=== PATIENT | female | born 1965 | race American Indian/Alaskan Native ===

== ENCOUNTER 2016-12-22 11:46 | Inpatient (IN) | payer BC ==
[2016-12-22 12:32] LABS: Hematocrit 40.3 % (30.3-42.9); Hemoglobin 13.2 gm/dl (10.1-14.3); Mean Corpuscular HGB Conc 33 % (30-34); Mean Corpuscular Hemoglobin 30 pg (28-32); Mean Corpuscular Volume 92 fl (79-97); Platelet Count 176 K/mm3 (140-440); Red Blood Count 4.38 M/mm3 (3.65-5.03); Red Cell Distribution Width 14.6 % (13.2-15.2); White Blood Count 3.6 K/mm3 (4.5-11.0)
[2016-12-22 12:49] LABS: Anion Gap 15 mmol/L; BUN/Creatinine Ratio 25; Blood Urea Nitrogen 15 mg/dL (7-17); Calcium 8.9 mg/dL (8.4-10.2); Carbon Dioxide 24 mmol/L (22-30); Chloride 104.6 mmol/L (98-107); Glucose 83 mg/dL (65-100); Potassium 3.8 mmol/L (3.6-5.0); Sodium 140 mmol/L (137-145)
[2016-12-22 13:07] LABS: Basophils % (Manual) 0 % (0.0-1.8); Blastocytes % (Manual) 0 %
[2016-12-22 13:08] LABS: Diff Status Complete; Macrocytosis 1+; Platelet Estimate Consistent w Auto
[2016-12-22] MEDS ORDERED: TYLENOL PO ONE (17:18)
[2016-12-22] MEDS ORDERED: BENTYL PO ONE (17:18)
[2016-12-22] MEDS ORDERED: CARAFATE PO ONE (17:18)
--- NOTE | 2016-12-22 17:18 | Emergency Department Report ---
ED Chest Pain HPI - General Chief Complaint: Chest Pain Stated Complaint: CHEST PAIN, RECTAL BLEEDING Time Seen by Provider: 12/22/16 16:47 Source: patient Mode of arrival: Ambulatory Limitations: No Limitations - History of Present Illness Initial Comments: This is a 51-year-old female. The patient is previously known to this provider. Patient reports that her primary care doctor is Dr. Blum. Patient reports that she had a colonoscopy in 2014 which demonstrated hemorrhoids. This was discussed with the lead burner apprentice on-call, Dr. Martinez , who verify this. The patient presents to the ER with multiple complaints. Her first complaint is chest pain. The chest pain is central. It does not radiate to the back, arms or neck. There is no vomiting or diaphoresis. There is no leg pain or leg swelling. There is no shortness of breath. No recent aspirin use, no recent cocaine use. No family history of heart disease, pulmonary embolus, DVT that she is aware of. Next complaint is rectal bleeding. This was a day ago during defecation. It was painless. It has since resolved. There is no hematemesis. Next complaint is lower abdominal pain. Abdominal pain is in the bilateral lower quadrants. It is intermittent over the past week. It does not radiate anywhere. No exacerbating or relieving factors. MD Complaint: chest pain -: Gradual Onset: during rest Pain Location: substernal Pain Radiation: none Severity: mild Severity scale (0 -10): 0 Quality: aching Consistency: intermittent Improves With: nothing Worsens With: nothing re: denies: nausea, vomting, diaphoresis, dyspnea, sense of impending doom Other Symptoms: denies: cough, fever, syncope, rash, acid taste in mouth, leg swelling, palpitations, burping Treatments Prior to Arrival: none Aspirin use within the Past 7 Days: (0) No - Related Data On Oral Contraceptives: No Home Medications Medication Instructions Recorded Confirmed Last Taken Naproxen/Esomeprazole Mag [Vimovo 1 each PO BID 12/22/16 12/22/16 12/20/16 Dr 500-20 mg Tablet] Allergies Allergy/AdvReac Type Severity Reaction Status Date / Time No Known Allergies Allergy Verified 08/13/15 07:37 Heart Score - HEART Score History: Slightly suspicious EKG: Non-specific Age: 45-65 Risk factors: No known risk factors Troponin: < normal limit HEART Score: 2 - Critical Actions Critical Actions: 0-3 pts:0.9-1.7%risk of adverse cardiac event.Candidate for discharge ED Review of Systems ROS: Stated complaint: CHEST PAIN, RECTAL BLEEDING Other details as noted in HPI Constitutional: denies: fever Eyes: denies: vision change ENT: denies: epistaxis Respiratory: denies: cough Cardiovascular: chest pain Gastrointestinal: abdominal pain, hematochezia Genitourinary: denies: urgency, dysuria Neurological: weakness. denies: as per HPI ED Past Medical Hx - Past Medical History Additional medical history: hital hernia - Surgical History Past Surgical History?: Yes Additional Surgical History: EGD, Colonoscopy - Social History Smoking Status: Current Some Day Smoker Substance Use Type: Alcohol - Medications Home Medications: Home Medications Medication Instructions Recorded Confirmed Last Taken Type Naproxen/Esomeprazole Mag [Vimovo 1 each PO BID 12/22/16 12/22/16 12/20/[address] 500-20 mg Tablet] ED Physical Exam - General Limitations: No Limitations General appearance: alert, in no apparent distress - Head Head exam: Present: atraumatic, normocephalic - Eye Eye exam: Present: normal appearance, EOMI. Absent: nystagmus - ENT ENT exam: Present: normal exam, normal orophraynx, mucous membranes moist, normal external ear exam - Neck Neck exam: Present: normal inspection, full ROM. Absent: tenderness, meningismus - Respiratory Respiratory exam: Present: normal lung sounds bilaterally. Absent: respiratory distress, wheezes, rales, rhonchi, stridor, chest wall tenderness - Cardiovascular Cardiovascular Exam: Present: regular rate, normal rhythm, normal heart sounds. Absent: bradycardia, tachycardia, irregular rhythm, systolic murmur, diastolic murmur, rubs, gallop - GI/Abdominal GI/Abdominal exam: Present: soft, normal bowel sounds. Absent: distended, tenderness, guarding, rebound, rigid, pulsatile mass - Rectal Rectal exam: Present: normal inspection, normal rectal tone, heme (-) stool, other (escorted by nurse Natalya Medel) - Extremities Exam Extremities exam: Present: normal inspection, full ROM, normal capillary refill. Absent: pedal edema, joint swelling, calf tenderness - Back Exam Back exam: Present: normal inspection, full ROM. Absent: tenderness, CVA tenderness (R), CVA tenderness (L), muscle spasm, paraspinal tenderness, vertebral tenderness - Neurological Exam Neurological exam: Present: alert, oriented X3, normal gait, other (Extraocular movements intact. Tongue midline. No facial droop. Facial sensation intact to light touch in the V1, V2, V3 distribution bilaterally. 5 and 5 strength in 4 extremities.. Sensation is intact to light touch in 4 extremities.). Absent : motor sensory deficit - Psychiatric Psychiatric exam: Present: normal affect, normal mood - Skin Skin exam: Present: warm, dry, intact, normal color. Absent: rash ED Course Vital Signs 12/22/16 12/22/16 12/22/16 12:00 14:43 16:40 Temperature 98.1 F 97.8 F Pulse Rate 88 78 Respiratory 16 18 18 Rate Blood Pressure 130/86 Blood Pressure 132/78 [Right] O2 Sat by Pulse 99 99 Oximetry - Reevaluation(s) Reevaluation #1: 12/22/16 19:[address] Reyes to discuss with turnstile collector, Dr Trevizo, to admit 12/22/16 20:17 ARSLAN score - Arslan Score Age > 65: (0) No Aspirin use within the Past 7 Days: (0) No 3 or more CAD Risk Factors: (0) No 2 or more Angina events in past 24 hrs: (0) No Known CAD with more than 50% Stenosis: (0) No Elevated Cardiac Markers: (0) No ST Deviation Greater than 0.5mm: (0) No ARSLAN Score: 0 ED Medical Decision Making - Lab Data Result diagrams: 12/22/16 12:06 12/22/16 12:06 Vital Signs 12/22/16 12/22/16 12/22/16 12:00 14:43 16:40 Temperature 98.1 F 97.8 F Pulse Rate 88 78 Respiratory 16 18 18 Rate Blood Pressure 130/86 Blood Pressure 132/78 [Right] O2 Sat by Pulse 99 99 Oximetry Lab Results 12/22/16 12/22/16 12/22/16 Range/Units 12:06 12:06 12:06 WBC 3.6 L (4.5-11.0) K/mm3 RBC 4.38 (3.65-5.03) M/mm3 Hgb 13.2 (10.1-14.3) gm/dl Hct 40.3 (30.3-42.9) % MCV 92 (79-97) fl MCH 30 (28-32) pg MCHC 33 (30-34) % RDW 14.6 (13.2-15.2) % Plt Count 176 (140-440) K/mm3 Lymph % (Auto) Pallet Repairer Add Manual Diff Complete Total Counted 100 Seg Neutrophils % Pallet Repairer Seg Neuts % (Manual) 23.0 L (40.0-70.0) % Band Neutrophils % 0 % Lymphocytes % (Manual) 69.0 H (13.4-35.0) % Reactive Lymphs % (Man) 0 % Monocytes % (Manual) 3.0 (0.0-7.3) % Eosinophils % (Manual) 5.0 H (0.0-4.3) % Basophils % (Manual) 0 (0.0-1.8) % Metamyelocytes % 0 % Myelocytes % 0 % Promyelocytes % 0 % Blast Cells % 0 % Nucleated RBC % Not Reportable Seg Neutrophils # Man 0.8 L (1.8-7.7) K/mm3 Band Neutrophils # 0.0 K/mm3 Lymphocytes # (Manual) 2.5 (1.2-5.4) K/mm3 Abs React Lymphs (Man) 0.0 K/mm3 Monocytes # (Manual) 0.1 (0.0-0.8) K/mm3 Eosinophils # (Manual) 0.2 (0.0-0.4) K/mm3 Basophils # (Manual) 0.0 (0.0-0.1) K/mm3 Metamyelocytes # 0.0 K/mm3 Myelocytes # 0.0 K/mm3 Promyelocytes # 0.0 K/mm3 Blast Cells # 0.0 K/mm3 WBC Morphology Not Reportable Hypersegmented Neuts Not Reportable Hyposegmented Neuts Not Reportable Hypogranular Neuts Not Reportable Smudge Cells Not Reportable Toxic Granulation Not Reportable Toxic Vacuolation Not Reportable Dohle Bodies Not Reportable Pelger-Huet Anomaly Not Reportable Ananda Rods Not Reportable Platelet Estimate Consistent w auto Clumped Platelets Not Reportable Plt Clumps, EDTA Not Reportable Large Platelets Not Reportable Giant Platelets Not Reportable Platelet Satelliting Not Reportable Plt Morphology Comment Not Reportable RBC Morphology Not Reportable Dimorphic RBCs Not Reportable Polychromasia Not Reportable Hypochromasia Not Reportable Poikilocytosis Not Reportable Anisocytosis Not Reportable Microcytosis Not Reportable Macrocytosis 1+ Spherocytes Not Reportable Pappenheimer Bodies Not Reportable Sickle Cells Not Reportable Target Cells Not Reportable Tear Drop Cells Not Reportable Ovalocytes Not Reportable Helmet Cells Not Reportable [place] Bodies Not Reportable [place] Rings Not Reportable [place] Cells Not Reportable Bite Cells Not Reportable Crenated Cell Not Reportable Elliptocytes Not Reportable Acanthocytes (Spur) Not Reportable Rouleaux Not Reportable Hemoglobin C Crystals Not Reportable Schistocytes Not Reportable Malaria parasites Not Reportable Johnathon Bodies Not Reportable Hem Pathologist Commnt No Sodium 140 (137-145) mmol/L Potassium 3.8 (3.6-5.0) mmol/L Chloride 104.6 (98-107) mmol/L Carbon Dioxide 24 (22-30) mmol/L Anion Gap 15 mmol/L BUN 15 (7-17) mg/dL Creatinine 0.6 L (0.7-1.2) mg/dL Estimated GFR > 60 ml/min BUN/Creatinine Ratio 25 % Glucose 83 (65-100) mg/dL Calcium 8.9 (8.4-10.2) mg/dL Troponin T < 0.010 (0.00-0.029) ng/mL HCG, Qual Negative (Negative) 12/22/16 12/22/16 Range/Units 15:00 18:13 WBC (4.5-11.0) K/mm3 RBC (3.65-5.03) M/mm3 Hgb (10.1-14.3) gm/dl Hct (30.3-42.9) % MCV (79-97) fl MCH (28-32) pg MCHC (30-34) % RDW (13.2-15.2) % Plt Count (140-440) K/mm3 Lymph % (Auto) Add Manual Diff Total Counted Seg Neutrophils % Seg Neuts % (Manual) (40.0-70.0) % Band Neutrophils % % Lymphocytes % (Manual) (13.4-35.0) % Reactive Lymphs % (Man) % Monocytes % (Manual) (0.0-7.3) % Eosinophils % (Manual) (0.0-4.3) % Basophils % (Manual) (0.0-1.8) % Metamyelocytes % % Myelocytes % % Promyelocytes % % Blast Cells % % Nucleated RBC % Seg Neutrophils # Man (1.8-7.7) K/mm3 Band Neutrophils # K/mm3 Lymphocytes # (Manual) (1.2-5.4) K/mm3 Abs React Lymphs (Man) K/mm3 Monocytes # (Manual) (0.0-0.8) K/mm3 Eosinophils # (Manual) (0.0-0.4) K/mm3 Basophils # (Manual) (0.0-0.1) K/mm3 Metamyelocytes # K/mm3 Myelocytes # K/mm3 Promyelocytes # K/mm3 Blast Cells # K/mm3 WBC Morphology Hypersegmented Neuts Hyposegmented Neuts Hypogranular Neuts Smudge Cells Toxic Granulation Toxic Vacuolation Dohle Bodies Pelger-Huet Anomaly Ananda Rods Platelet Estimate Clumped Platelets Plt Clumps, EDTA Large Platelets Giant Platelets Platelet Satelliting Plt Morphology Comment RBC Morphology Dimorphic RBCs Polychromasia Hypochromasia Poikilocytosis Anisocytosis Microcytosis Macrocytosis Spherocytes Pappenheimer Bodies Sickle Cells Target Cells Tear Drop Cells Ovalocytes Helmet Cells [place] Bodies [place] Rings [place] Cells Bite Cells Crenated Cell Elliptocytes Acanthocytes (Spur) Rouleaux Hemoglobin C Crystals Schistocytes Malaria parasites Johnathon Bodies Hem Pathologist Commnt Sodium (137-145) mmol/L Potassium (3.6-5.0) mmol/L Chloride (98-107) mmol/L Carbon Dioxide (22-30) mmol/L Anion Gap mmol/L BUN (7-17) mg/dL Creatinine (0.7-1.2) mg/dL Estimated GFR ml/min BUN/Creatinine Ratio % Glucose (65-100) mg/dL Calcium (8.4-10.2) mg/dL Troponin T < 0.010 < 0.010 (0.00-0.029) ng/mL HCG, Qual (Negative) - EKG Data -: EKG Interpreted by Or EKG shows normal: sinus rhythm Rate: normal - EKG Data 12/22/16 19:16 EKG #1 demonstrates sinus, 89 bpm, normal axis, QTC prolonged, poor all if progression, Q waves in the high lateral leads, abnormal EKG, not morphologically consistent with STEMI, appears unchanged when compared to prior from September 2014. Repeat EKG appears unchanged, persistent T-wave inversions in the septal leads, not morphologically consistent with STEMI, unchanged from prior. - Radiology Data Radiology results: report reviewed, image reviewed interpreted by me: X-ray of the chest is negative for acute disease Noncontrast CT scan of the abdomen and pelvis is intermediate probability for acute appendicitis, the appendix is dilated, however there are no secondary inflammatory findings. - Medical Decision Making Differential diagnosis: Acute coronary syndrome, GERD, gastritis, diverticulitis , diverticulosis, angiodysplasia, colitis, urinary tract infection Assessment and plan: 51-year-old female with chest pain, abdominal pain, and rectal bleeding. Chest pain atypical, low risk by ARSLAN score, low risk by heart score, no pulmonary embolus or DVT risk factors, low risk by well's criteria, troponin negative 3, EKG 2, and unchanged from prior. No blood on rectal examination, discussed case with Dr. Martinez, GI, he indicates that from a GI standpoint, patient can follow-up as an outpatient, had a colonoscopy 2 years ago. There is no abdominal tenderness, rebound or guarding, there is physically no right lower quadrant tenderness. Clinically doubt appendicitis. Patient has been having abdominal pain for the past week which is on and off. I have repeatedly examined the patient's right lower quadrant, and there is no tenderness or rebound. She is eating without difficulty, and she speaking on a cell phone and does not appear to be distressed. Had extensive discussion with the patient, she indicates that she cannot secure close outpatient follow-up, I have therefore discussed the case with the general surgeon on-call, Dr. Ritter, who will see the patient in consultation. She recommends no antibiotics or narcotic pain medication, she is okay with acetaminophen. Hospital team to admit patient for serial abdominal exams, possible ACS risk stratification. Critical care attestation.: If time is entered above; I have spent that time in minutes in the direct care of this critically ill patient, excluding procedure time. ED Disposition Clinical Impression: Chest pain, Abdominal pain, History of rectal bleeding Disposition: OP ADMIT IP TO THIS HOSP Is pt being admited?: Yes Does the pt Need Aspirin: Yes Condition: Stable Instructions: Chest Pain (ED) Referrals: PRIMARY CARE, [Primary Care Provider] - 3-5 Days
--- NOTE | 2016-12-22 18:34 | Cat Scan Report ---
FINAL REPORT PROCEDURE: CT abdomen and pelvis without contrast. TECHNIQUE: Computerized axial tomography of the abdomen and pelvis was performed without intravenous contrast. This study is performed without intravascular contrast material and its sensitivity for abdominal and pelvic pathology, including neoplasms, inflammation, abscess, free fluid, thrombosis, arterial dissection and infarction, is reduced compared with a contrast enhanced study. HISTORY: Lower abdominal pain. COMPARISON: No prior studies are available for comparison. FINDINGS: The lung bases are clear. There are no pleural effusions. The heart size is normal. The liver, spleen and pancreas are grossly normal. The gallbladder is present. The adrenal glands are not enlarged. Both kidneys appear normal in size and configuration. The abdominal aorta has a normal caliber. There is no retroperitoneal adenopathy. The appendix is mildly dilated measuring between 7.1 and 8.2 millimeters. This is borderline abnormal. There is no obvious infiltration of the fat adjacent to the appendix to suggest inflammation. There are no fluid collections. I consider this study indeterminate for acute appendicitis and clinical correlation is recommended. The bladder, uterus and adnexal regions are unremarkable. There are numerous calcifications in the lower pelvis consistent with phleboliths. The regional skeleton appears intact. IMPRESSION: Mild enlargement of the appendix without obvious signs of inflammation. Study indeterminate for acute appendicitis.
[2016-12-22] MEDS ORDERED: BABY ASPIRIN PO ONE (19:20)
[2016-12-22 19:23] LABS: Bilirubin,Urine NEG (Negative); Blood,Urine NEG (Negative); Ketones,Urine NEG (Negative); Leukocyte Esterase,Urine NEG (Negative); Nitrite,Urine NEG (Negative); Protein,Urine <15 mg/dL mg/dL (Negative); RBC,Urine < 1.0 /HPF (0.0-6.0); Urobilinogen,Urine < 2.0 mg/dL (<2.0); WBC,Urine < 1.0 /HPF (0.0-6.0)
--- NOTE | 2016-12-22 21:43 | History and Physical Report ---
History of Present Illness Date of examination: 12/22/16 Chief complaint: Chest pain, abdominal pain History of present illness: 51-year-old -[place] female with medical history significant for hiatal hernia presented to the emergency department complaining of mid distal chest pain that started last week. Pain is on and off, sharp, sometimes she feels a heaviness on his chest, 8-9 in intensity, with radiation not associated shortness of breath, diaphoresis, palpitation. The pain happens 3-4 times a day. Patient is also complaining of lower abdominal pain for the last 1 week, worse on the right side, crampy, 8 out of 10 in intensity with some radiation to the left side. Not associated nausea, vomiting, diarrhea, constipation. Patient said she has rectal bleeding on and off for a long period of time likely due to hemorrhoids, she has colonoscopy done and was normal finding, yesterday she had massive rectal bleeding. She has been followed by Dr. Martinez. REVIEW OF SYSTEMS: GENERAL: no weight change, no fatigue, no fever HEAD: no head ache EYES: no blurry vision, no acute visual loss EARS: no hearing loss, no discharge, no earache NOSE: no stuffiness, no sneezing, no discharge MOUTH, THROAT AND NECK: no bleeding gums, no sore throat, no swollen neck CARDIAC: As stated in the HPI. RESPIRATORY: no shortness of breath, no wheeze, no cough, no sputum, no hemoptysis, no asthma GI: As stated in the HPI. URINARY: no change in frequency, no urgency, no polyuria, no hematuria, no incontinence MUSCULOSKELETAL: no muscle weakness, no pain, no joint stiffness NEUROLOGIC: no loss of sensation/numbness, no tingling, no tremors, no weakness/ paralysis HEMATOLOGIC: no anemia, no easy bruising SKIN: no rashes ENDOCRINE: no heat/cold intolerance, no polyuria, no polydipsia, no thyroid problems, no diabetes PSYCHIATRIC: no anxiety, no depression, no suicidal ideations Past History Past Medical History: other (hiatal hernia) Past Surgical History: No surgical history Social history: smoking (smoke ciaretes sometimes), alcohol abuse (social), full code. denies: prescription drug abuse, IV drug use Family history: no significant family history Medications and Allergies Allergies Allergy/AdvReac Type Severity Reaction Status Date / Time No Known Allergies Allergy Verified 08/13/15 07:37 Home Medications Medication Instructions Recorded Confirmed Last Taken Type Naproxen/Esomeprazole Mag [Vimovo 1 each PO BID 12/22/16 12/22/16 12/20/16 History 500-20 mg Tablet] Exam - Physical Exam Narrative exam: Not in cardiopulmonary distress. The patient appeared well nourished and normally developed. Vital signs as documented. Head exam is unremarkable. No scleral icterus . Neck is without jugular venous distension, thyromegaly, or carotid bruits. Lungs are clear to auscultation. Cardiac exam reveals regular rate and Rhythm. First and second heart sounds normal. No murmurs, rubs or gallops. Abdominal exam reveals normal bowel sounds, no masses, no organomegaly and no aortic enlargement. Extremities are nonedematous and both femoral and pedal pulses are normal. ORDER WORKER: Alert and oriented 3. No focal weakness. - Constitutional Vitals: Temp Pulse Resp BP Pulse Ox 97.8 F 78 18 132/78 99 12/22/16 16:40 12/22/16 16:40 12/22/16 16:40 12/22/16 16:40 12/22/16 16:40 Results - Labs CBC & Chem 7: 12/22/16 22:10 12/22/16 22:10 Labs: Laboratory Last Values WBC 3.6 K/mm3 (4.5-11.0) L 12/22/16 12:06 RBC 4.38 M/mm3 (3.65-5.03) 12/22/16 12:06 Hgb 13.2 gm/dl (10.1-14.3) 12/22/16 12:06 Hct 40.3 % (30.3-42.9) 12/22/16 12:06 MCV 92 fl (79-97) 12/22/16 12:06 MCH 30 pg (28-32) 12/22/16 12:06 MCHC 33 % (30-34) 12/22/16 12:06 RDW 14.6 % (13.2-15.2) 12/22/16 12:06 Plt Count 176 K/mm3 (140-440) 12/22/16 12:06 Lymph % (Auto) Club Waiter/Waitress 12/22/16 12:06 Add Manual Diff Complete 12/22/16 12:06 Total Counted 100 12/22/16 12:06 Seg Neutrophils % Club Waiter/Waitress 12/22/16 12:06 Seg Neuts % (Manual) 23.0 % (40.0-70.0) L 12/22/16 12:06 Band Neutrophils % 0 % 12/22/16 12:06 Lymphocytes % (Manual) 69.0 % (13.4-35.0) H 12/22/16 12:06 Reactive Lymphs % (Man) 0 % 12/22/16 12:06 Monocytes % (Manual) 3.0 % (0.0-7.3) 12/22/16 12:06 Eosinophils % (Manual) 5.0 % (0.0-4.3) H 12/22/16 12:06 Basophils % (Manual) 0 % (0.0-1.8) 12/22/16 12:06 Metamyelocytes % 0 % 12/22/16 12:06 Myelocytes % 0 % 12/22/16 12:06 Promyelocytes % 0 % 12/22/16 12:06 Blast Cells % 0 % 12/22/16 12:06 Nucleated RBC % Not Reportable 12/22/16 12:06 Seg Neutrophils # Man 0.8 K/mm3 (1.8-7.7) L 12/22/16 12:06 Band Neutrophils # 0.0 K/mm3 12/22/16 12:06 Lymphocytes # (Manual) 2.5 K/mm3 (1.2-5.4) 12/22/16 12:06 Abs React Lymphs (Man) 0.0 K/mm3 12/22/16 12:06 Monocytes # (Manual) 0.1 K/mm3 (0.0-0.8) 12/22/16 12:06 Eosinophils # (Manual) 0.2 K/mm3 (0.0-0.4) 12/22/16 12:06 Basophils # (Manual) 0.0 K/mm3 (0.0-0.1) 12/22/16 12:06 Metamyelocytes # 0.0 K/mm3 12/22/16 12:06 Myelocytes # 0.0 K/mm3 12/22/16 12:06 Promyelocytes # 0.0 K/mm3 12/22/16 12:06 Blast Cells # 0.0 K/mm3 12/22/16 12:06 WBC Morphology Not Reportable 12/22/16 12:06 Hypersegmented Neuts Not Reportable 12/22/16 12:06 Hyposegmented Neuts Not Reportable 12/22/16 12:06 Hypogranular Neuts Not Reportable 12/22/16 12:06 Smudge Cells Not Reportable 12/22/16 12:06 Toxic Granulation Not Reportable 12/22/16 12:06 Toxic Vacuolation Not Reportable 12/22/16 12:06 Dohle Bodies Not Reportable 12/22/16 12:06 Pelger-Huet Anomaly Not Reportable 12/22/16 12:06 Ananda Rods Not Reportable 12/22/16 12:06 Platelet Estimate Consistent w auto 12/22/16 12:06 Clumped Platelets Not Reportable 12/22/16 12:06 Plt Clumps, EDTA Not Reportable 12/22/16 12:06 Large Platelets Not Reportable 12/22/16 12:06 Giant Platelets Not Reportable 12/22/16 12:06 Platelet Satelliting Not Reportable 12/22/16 12:06 Plt Morphology Comment Not Reportable 12/22/16 12:06 RBC Morphology Not Reportable 12/22/16 12:06 Dimorphic RBCs Not Reportable 12/22/16 12:06 Polychromasia Not Reportable 12/22/16 12:06 Hypochromasia Not Reportable 12/22/16 12:06 Poikilocytosis Not Reportable 12/22/16 12:06 Anisocytosis Not Reportable 12/22/16 12:06 Microcytosis Not Reportable 12/22/16 12:06 Macrocytosis 1+ 12/22/16 12:06 Spherocytes Not Reportable 12/22/16 12:06 Pappenheimer Bodies Not Reportable 12/22/16 12:06 Sickle Cells Not Reportable 12/22/16 12:06 Target Cells Not Reportable 12/22/16 12:06 Tear Drop Cells Not Reportable 12/22/16 12:06 Ovalocytes Not Reportable 12/22/16 12:06 Helmet Cells Not Reportable 12/22/16 12:06 [place] Bodies Not Reportable 12/22/16 12:06 [place] Rings Not Reportable 12/22/16 12:06 [place] Cells Not Reportable 12/22/16 12:06 Bite Cells Not Reportable 12/22/16 12:06 Crenated Cell Not Reportable 12/22/16 12:06 Elliptocytes Not Reportable 12/22/16 12:06 Acanthocytes (Spur) Not Reportable 12/22/16 12:06 Rouleaux Not Reportable 12/22/16 12:06 Hemoglobin C Crystals Not Reportable 12/22/16 12:06 Schistocytes Not Reportable 12/22/16 12:06 Malaria parasites Not Reportable 12/22/16 12:06 Johnathon Bodies Not Reportable 12/22/16 12:06 Hem Pathologist Commnt No 12/22/16 12:06 Sodium 140 mmol/L (137-145) 12/22/16 12:06 Potassium 3.8 mmol/L (3.6-5.0) 12/22/16 12:06 Chloride 104.6 mmol/L (98-107) 12/22/16 12:06 Carbon Dioxide 24 mmol/L (22-30) 12/22/16 12:06 Anion Gap 15 mmol/L 12/22/16 12:06 BUN 15 mg/dL (7-17) 12/22/16 12:06 Creatinine 0.6 mg/dL (0.7-1.2) L 12/22/16 12:06 Estimated GFR > 60 ml/min 12/22/16 12:06 BUN/Creatinine Ratio 25 % 12/22/16 12:06 Glucose 83 mg/dL (65-100) 12/22/16 12:06 Calcium 8.9 mg/dL (8.4-10.2) 12/22/16 12:06 Troponin T < 0.010 ng/mL (0.00-0.029) 12/22/16 18:13 HCG, Qual Negative (Negative) 12/22/16 12:06 Urine Color Yellow (Yellow) 12/22/16 Unknown Urine Turbidity Clear (Clear) 12/22/16 Unknown Urine pH 6.0 (5.0-7.0) 12/22/16 Unknown Ur Specific [place] 1.011 (1.003-1.030) 12/22/16 Unknown Urine Protein <15 mg/dl mg/dL (Negative) 12/22/16 Unknown Urine Glucose (UA) Neg mg/dL (Negative) 12/22/16 Unknown Urine Ketones Neg mg/dL (Negative) 12/22/16 Unknown Urine Blood Neg (Negative) 12/22/16 Unknown Urine Nitrite Neg (Negative) 12/22/16 Unknown Urine Bilirubin Neg (Negative) 12/22/16 Unknown Urine Urobilinogen < 2.0 mg/dL (<2.0) 12/22/16 Unknown Ur Leukocyte Esterase Neg (Negative) 12/22/16 Unknown Urine WBC (Auto) < 1.0 /HPF (0.0-6.0) 12/22/16 Unknown Urine RBC (Auto) < 1.0 /HPF (0.0-6.0) 12/22/16 Unknown - Imaging and Cardiology CT scan - abdomen: report reviewed (indeterminate for appendicitis) Assessment and Plan Assessment and plan: Chest pain to rule out ACS - Troponins were negative, EKG normal sinus rhythm - We'll do thallium stress test tomorrow morning Lower abdominal pain - CT is indeterminate for appendicitis - Surgery consulted Rectal bleeding - Likely due to hemorrhoids - H&H stable - GI consulted DVT prophylaxis - SCDs because of rectal bleeding Disposition - Admit to telemetry floor. Advance Directives: Yes VTE prophylaxis?: Mechanical Reason for no VTE Prophylaxis: Bleeding Plan of care discussed with patient/family: Yes
[2016-12-22] MEDS ORDERED: SODIUM CHLORIDE FLUSH SYRINGE 10 ML IV PRN (21:44)
[2016-12-22] MEDS: PEPCID PO SCH (22:19)
[2016-12-22 22:22] LABS: Hematocrit 38.5 % (30.3-42.9); Mean Corpuscular HGB Conc 34 % (30-34); Mean Corpuscular Hemoglobin 31 pg (28-32); Mean Corpuscular Volume 91 fl (79-97); Platelet Count 150 K/mm3 (140-440); Red Blood Count 4.23 M/mm3 (3.65-5.03); Red Cell Distribution Width 14.7 % (13.2-15.2); White Blood Count 3.1 K/mm3 (4.5-11.0)
[2016-12-22 22:43] LABS: Anion Gap 15 mmol/L; BUN/Creatinine Ratio 32; Blood Urea Nitrogen 16 mg/dL (7-17); Calcium 8.7 mg/dL (8.4-10.2); Carbon Dioxide 24 mmol/L (22-30); Chloride 105.5 mmol/L (98-107); Cholesterol 148 mg/dL (50-199); Glucose 101 mg/dL (65-100); HDL Cholesterol 109 mg/dL (40-59); LDL Cholesterol,Direct 35 mg/dL (50-130); Potassium 3.9 mmol/L (3.6-5.0); Sodium 141 mmol/L (137-145); Triglycerides 20 mg/dL (2-149)
[2016-12-22 23:02] LABS: Basophils % (Manual) 0 % (0.0-1.8); Blastocytes % (Manual) 0 %; Eosinophils % (Manual) 0 % (0.0-4.3)
[2016-12-22 23:04] LABS: Anisocytosis Few; Large Platelets Few; Platelet Estimate Consistent w Auto
[2016-12-22 23:05] LABS: Diff Status Complete
[2016-12-23 05:46] LABS: Hematocrit 37.6 % (30.3-42.9); Hemoglobin 12.8 gm/dl (10.1-14.3); Mean Corpuscular HGB Conc 34 % (30-34); Mean Corpuscular Hemoglobin 31 pg (28-32); Mean Corpuscular Volume 91 fl (79-97); Platelet Count 143 K/mm3 (140-440); Red Blood Count 4.14 M/mm3 (3.65-5.03); Red Cell Distribution Width 14.3 % (13.2-15.2); White Blood Count 3.7 K/mm3 (4.5-11.0)
[2016-12-23 05:54] LABS: INR 1.07 (0.87-1.13)
[2016-12-23 06:02] LABS: Anion Gap 15 mmol/L; BUN/Creatinine Ratio 32; Blood Urea Nitrogen 16 mg/dL (7-17); Calcium 8.9 mg/dL (8.4-10.2); Carbon Dioxide 22 mmol/L (22-30); Chloride 104.9 mmol/L (98-107); Glucose 75 mg/dL (65-100); Potassium 3.9 mmol/L (3.6-5.0); Sodium 138 mmol/L (137-145)
[2016-12-23] MEDS ORDERED: LEXISCAN IV ONE ×2 (08:11→08:19)
[2016-12-23 08:14] LABS: Anisocytosis Few; Basophils % (Manual) 0 % (0.0-1.8); Blastocytes % (Manual) 0 %; Diff Status Complete; Hypochromasia Few
--- NOTE | 2016-12-23 09:18 | Consultation ---
History of Present Illness Consult date: 12/23/16 Reason for consult: abdominal pain Chief complaint: chest pain, abdominal pain - History of present illness History of present illness: 51 yo F with no PMHx of hiatal hernia, hemorrhoids presents to ER with complaint of sharp mid sternal chest pain x1 day. The patient states she has never had pain like this before. She also relays a history of 1 week of lower abdominal pain, crampy in nature. This is also associated with intermittent bright red rectal bleeding. She has had bleeding like this in the past which was attributed to hemorrhoids. She denies f/c, SOB, n/v. She is hungry. She has a bowel movement every 3 days and does have constipation. Past History Past Medical History: other (hiatal hernia, hemorrhoids) Past Surgical History: No surgical history Social history: smoking (smoke ciaretes sometimes), alcohol abuse (social), full code. denies: prescription drug abuse, IV drug use Family history: no significant family history Medications and Allergies Allergies Allergy/AdvReac Type Severity Reaction Status Date / Time No Known Allergies Allergy Verified 08/13/15 07:37 Home Medications Medication Instructions Recorded Confirmed Last Taken Type Naproxen/Esomeprazole Mag [Vimovo 1 each PO BID 12/22/16 12/22/16 12/20/16 History 500-20 mg Tablet] Active Meds: Active Medications Atorvastatin Calcium (Lipitor) 40 mg PO QHS [facility] Last Admin: 12/22/16 22:19 Dose: 40 mg Famotidine (Pepcid) 20 mg PO BID [facility] Last Admin: 12/22/16 22:19 Dose: 20 mg Sodium Chloride (Sodium Chloride Flush Syringe 10 Ml) 10 ml IV PRN PRN PRN Reason: LINE FLUSH Review of Systems All systems: negative (see hpi) Exam Vital Signs Temp Pulse Resp BP Pulse Ox 98.1 F 88 16 130/86 99 12/22/16 12:00 12/22/16 12:00 12/22/16 12:00 12/22/16 12:00 12/22/16 12:00 Narrative exam: Gen: AAOx3. NAD CV: S1, S2+ Resp: NO audible wheezes Abd: soft, NT, ND. no r/r/g Ext: no c/c/e Results - Labs 12/23/16 04:41 12/23/16 04:41 Abnormal lab results 12/22/16 12/22/16 12/23/16 Range/Units 22:10 22:10 04:41 WBC 3.1 L 3.7 L (4.5-11.0) K/mm3 Seg Neuts % (Manual) 17.0 L (40.0-70.0) % Lymphocytes % (Manual) 74.0 H 53.0 H (13.4-35.0) % Monocytes % (Manual) 9.0 H (0.0-7.3) % Nucleated RBC % 2.0 H (0.0-0.9) % Seg Neutrophils # Man 0.5 L 1.6 L (1.8-7.7) K/mm3 Creatinine 0.5 L (0.7-1.2) mg/dL Glucose 101 H (65-100) mg/dL LDL Cholesterol Direct 35 L (50-130) mg/dL HDL Cholesterol 109 H (40-59) mg/dL 12/23/16 Range/Units 04:41 WBC (4.5-11.0) K/mm3 Seg Neuts % (Manual) (40.0-70.0) % Lymphocytes % (Manual) (13.4-35.0) % Monocytes % (Manual) (0.0-7.3) % Nucleated RBC % (0.0-0.9) % Seg Neutrophils # Man (1.8-7.7) K/mm3 Creatinine 0.5 L (0.7-1.2) mg/dL Glucose (65-100) mg/dL LDL Cholesterol Direct (50-130) mg/dL HDL Cholesterol (40-59) mg/dL Diabetes panel 12/22/16 12/23/16 Range/Units 22:10 04:41 Sodium 141 138 (137-145) mmol/L Potassium 3.9 3.9 (3.6-5.0) mmol/L Chloride 105.5 104.9 (98-107) mmol/L Carbon Dioxide 24 22 (22-30) mmol/L BUN 16 16 (7-17) mg/dL Creatinine 0.5 L 0.5 L (0.7-1.2) mg/dL Glucose 101 H 75 (65-100) mg/dL Calcium 8.7 8.9 (8.4-10.2) mg/dL Triglycerides 20 (2-149) mg/dL HDL Cholesterol 109 H (40-59) mg/dL Calcium panel 12/22/16 12/23/16 Range/Units 22:10 04:41 Calcium 8.7 8.9 (8.4-10.2) mg/dL Pituitary panel 12/22/16 12/23/16 Range/Units 22:10 04:41 Sodium 141 138 (137-145) mmol/L Potassium 3.9 3.9 (3.6-5.0) mmol/L Chloride 105.5 104.9 (98-107) mmol/L Carbon Dioxide 24 22 (22-30) mmol/L BUN 16 16 (7-17) mg/dL Creatinine 0.5 L 0.5 L (0.7-1.2) mg/dL Glucose 101 H 75 (65-100) mg/dL Calcium 8.7 8.9 (8.4-10.2) mg/dL Adrenal panel 12/22/16 12/23/16 Range/Units 22:10 04:41 Sodium 141 138 (137-145) mmol/L Potassium 3.9 3.9 (3.6-5.0) mmol/L Chloride 105.5 104.9 (98-107) mmol/L Carbon Dioxide 24 22 (22-30) mmol/L BUN 16 16 (7-17) mg/dL Creatinine 0.5 L 0.5 L (0.7-1.2) mg/dL Glucose 101 H 75 (65-100) mg/dL Calcium 8.7 8.9 (8.4-10.2) mg/dL - Imaging CT scan - abdomen: report reviewed, image reviewed CT scan - pelvis: report reviewed, image reviewed Assessment and Plan 51 yo F with chest pain, constipation 1. clinical history and physical exam, labs, along with CT imaging does not support the diagnosis of appendicitis. 2. start regular diet after stress test 3. stool softener 4. no surgical intervention 5. ok for dc from surgery standpoint
--- NOTE | 2016-12-23 09:30 | XRay Report ---
AP CHEST : 12/22/16 19:01 CLINICAL: Chest pain, off and on for one week. COMPARISON:None FINDINGS: Normal heart and pulmonary vessels.Mild aortic tortuosity. The lungs are normally expanded and clear. The bones and soft tissues are unremarkable. IMPRESSION: No acute cardiopulmonary process.
[2016-12-23] MEDS: PEPCID PO SCH ×2 (10:40→21:28)
[2016-12-23] MEDS ORDERED: CITRATE OF MAGNESIA PO ONE ×2 (12:44→18:00)
--- NOTE | 2016-12-23 12:44 | Progress Note ---
Assessment and Plan Assessment and plan: Chest pain. Stress thallium shows no ischemia. Check d-dimer. Troponins are negative. An EKG was normal sinus rhythm. Constipation. Mag citrate 1 bottle. Rectal bleeding. Etiology likely secondary to hemorrhoids. Await GI consultation. DVT prophylaxis. Continue SCDs given a rectal bleeding. Disposition. Anticipate discharge in a.m. History Interval history: No new issues overnight. Mild lower abdominal pain Hospitalist Physical - Constitutional Vitals: Temp Pulse Resp BP Pulse Ox 98.7 F 64 20 156/96 100 12/23/16 06:27 12/23/16 06:27 12/23/16 06:27 12/23/16 06:33 12/23/16 06:27 General appearance: Present: no acute distress, well-nourished - EENT Eyes: Present: PERRL, EOM intact ENT: hearing intact, clear oral mucosa, dentition normal - Neck Neck: Present: supple, normal ROM - Respiratory Respiratory effort: normal Respiratory: bilateral: CTA - Cardiovascular Rhythm: regular Heart Sounds: Present: S1 & S2. Absent: gallop, rub - Extremities Extremities: no ischemia, No edema, Full ROM - Abdominal General gastrointestinal: soft, non-tender, non-distended, normal bowel sounds - Integumentary Integumentary: Present: clear, warm, dry - Neurologic Neurologic: CNII-XII intact, moves all extremities Results - Labs CBC & Chem 7: 12/23/16 04:41 12/23/16 04:41 Labs: Laboratory Last Values WBC 3.7 K/mm3 (4.5-11.0) L 12/23/16 04:41 RBC 4.14 M/mm3 (3.65-5.03) 12/23/16 04:41 Hgb 12.8 gm/dl (10.1-14.3) 12/23/16 04:41 Hct 37.6 % (30.3-42.9) 12/23/16 04:41 MCV 91 fl (79-97) 12/23/16 04:41 MCH 31 pg (28-32) 12/23/16 04:41 MCHC 34 % (30-34) 12/23/16 04:41 RDW 14.3 % (13.2-15.2) 12/23/16 04:41 Plt Count 143 K/mm3 (140-440) 12/23/16 04:41 Lymph % (Auto) Patternmaker All Around 12/23/16 04:41 Add Manual Diff Complete 12/23/16 04:41 Total Counted 100 12/23/16 04:41 Seg Neutrophils % Patternmaker All Around 12/23/16 04:41 Seg Neuts % (Manual) 42.0 % (40.0-70.0) 12/23/16 04:41 Band Neutrophils % 1.0 % 12/23/16 04:41 Lymphocytes % (Manual) 53.0 % (13.4-35.0) H 12/23/16 04:41 Reactive Lymphs % (Man) 0 % 12/23/16 04:41 Monocytes % (Manual) 2.0 % (0.0-7.3) 12/23/16 04:41 Eosinophils % (Manual) 2.0 % (0.0-4.3) 12/23/16 04:41 Basophils % (Manual) 0 % (0.0-1.8) 12/23/16 04:41 Metamyelocytes % 0 % 12/23/16 04:41 Myelocytes % 0 % 12/23/16 04:41 Promyelocytes % 0 % 12/23/16 04:41 Blast Cells % 0 % 12/23/16 04:41 Nucleated RBC % 2.0 % (0.0-0.9) H 12/23/16 04:41 Seg Neutrophils # Man 1.6 K/mm3 (1.8-7.7) L 12/23/16 04:41 Band Neutrophils # 0.0 K/mm3 12/23/16 04:41 Lymphocytes # (Manual) 2.0 K/mm3 (1.2-5.4) 12/23/16 04:41 Abs React Lymphs (Man) 0.0 K/mm3 12/23/16 04:41 Monocytes # (Manual) 0.1 K/mm3 (0.0-0.8) 12/23/16 04:41 Eosinophils # (Manual) 0.1 K/mm3 (0.0-0.4) 12/23/16 04:41 Basophils # (Manual) 0.0 K/mm3 (0.0-0.1) 12/23/16 04:41 Metamyelocytes # 0.0 K/mm3 12/23/16 04:41 Myelocytes # 0.0 K/mm3 12/23/16 04:41 Promyelocytes # 0.0 K/mm3 12/23/16 04:41 Blast Cells # 0.0 K/mm3 12/23/16 04:41 WBC Morphology Not Reportable 12/23/16 04:41 Hypersegmented Neuts Not Reportable 12/23/16 04:41 Hyposegmented Neuts Not Reportable 12/23/16 04:41 Hypogranular Neuts Not Reportable 12/23/16 04:41 Smudge Cells Not Reportable 12/23/16 04:41 Toxic Granulation Not Reportable 12/23/16 04:41 Toxic Vacuolation Not Reportable 12/23/16 04:41 Dohle Bodies Not Reportable 12/23/16 04:41 Pelger-Huet Anomaly Not Reportable 12/23/16 04:41 Ananda Rods Not Reportable 12/23/16 04:41 Platelet Estimate Appears normal 12/23/16 04:41 Clumped Platelets Not Reportable 12/23/16 04:41 Plt Clumps, EDTA Not Reportable 12/23/16 04:41 Large Platelets Not Reportable 12/23/16 04:41 Giant Platelets Not Reportable 12/23/16 04:41 Platelet Satelliting Not Reportable 12/23/16 04:41 Plt Morphology Comment Not Reportable 12/23/16 04:41 RBC Morphology Not Reportable 12/23/16 04:41 Dimorphic RBCs Not Reportable 12/23/16 04:41 Polychromasia Not Reportable 12/23/16 04:41 Hypochromasia Few 12/23/16 04:41 Poikilocytosis Not Reportable 12/23/16 04:41 Anisocytosis Few 12/23/16 04:41 Microcytosis Not Reportable 12/23/16 04:41 Macrocytosis Not Reportable 12/23/16 04:41 Spherocytes Not Reportable 12/23/16 04:41 Pappenheimer Bodies Not Reportable 12/23/16 04:41 Sickle Cells Not Reportable 12/23/16 04:41 Target Cells Not Reportable 12/23/16 04:41 Tear Drop Cells Not Reportable 12/23/16 04:41 Ovalocytes Not Reportable 12/23/16 04:41 Helmet Cells Not Reportable 12/23/16 04:41 [place] Bodies Not Reportable 12/23/16 04:41 [place] Rings Not Reportable 12/23/16 04:41 [place] Cells Not Reportable 12/23/16 04:41 Bite Cells Not Reportable 12/23/16 04:41 Crenated Cell Not Reportable 12/23/16 04:41 Elliptocytes Not Reportable 12/23/16 04:41 Acanthocytes (Spur) Not Reportable 12/23/16 04:41 Rouleaux Not Reportable 12/23/16 04:41 Hemoglobin C Crystals Not Reportable 12/23/16 04:41 Schistocytes Not Reportable 12/23/16 04:41 Malaria parasites Not Reportable 12/23/16 04:41 Johnathon Bodies Not Reportable 12/23/16 04:41 Hem Pathologist Commnt No 12/23/16 04:41 PT 14.4 Sec. (12.2-14.9) 12/23/16 04:41 INR 1.07 (0.87-1.13) 12/23/16 04:41 Sodium 138 mmol/L (137-145) 12/23/16 04:41 Potassium 3.9 mmol/L (3.6-5.0) 12/23/16 04:41 Chloride 104.9 mmol/L (98-107) 12/23/16 04:41 Carbon Dioxide 22 mmol/L (22-30) 12/23/16 04:41 Anion Gap 15 mmol/L 12/23/16 04:41 BUN 16 mg/dL (7-17) 12/23/16 04:41 Creatinine 0.5 mg/dL (0.7-1.2) L 12/23/16 04:41 Estimated GFR > 60 ml/min 12/23/16 04:41 BUN/Creatinine Ratio 32 % 12/23/16 04:41 Glucose 75 mg/dL (65-100) 12/23/16 04:41 Calcium 8.9 mg/dL (8.4-10.2) 12/23/16 04:41 Troponin T < 0.010 ng/mL (0.00-0.029) 12/23/16 00:51 Triglycerides 20 mg/dL (2-149) 12/22/16 22:10 Cholesterol 148 mg/dL (50-199) 12/22/16 22:10 LDL Cholesterol Direct 35 mg/dL (50-130) L 12/22/16 22:10 HDL Cholesterol 109 mg/dL (40-59) H 12/22/16 22:10 Cholesterol/HDL Ratio 1.35 % 12/22/16 22:10 HCG, Qual Negative (Negative) 12/22/16 12:06 Urine Color Yellow (Yellow) 12/22/16 Unknown Urine Turbidity Clear (Clear) 12/22/16 Unknown Urine pH 6.0 (5.0-7.0) 12/22/16 Unknown Ur Specific [place] 1.011 (1.003-1.030) 12/22/16 Unknown Urine Protein <15 mg/dl mg/dL (Negative) 12/22/16 Unknown Urine Glucose (UA) Neg mg/dL (Negative) 12/22/16 Unknown Urine Ketones Neg mg/dL (Negative) 12/22/16 Unknown Urine Blood Neg (Negative) 12/22/16 Unknown Urine Nitrite Neg (Negative) 12/22/16 Unknown Urine Bilirubin Neg (Negative) 12/22/16 Unknown Urine Urobilinogen < 2.0 mg/dL (<2.0) 12/22/16 Unknown Ur Leukocyte Esterase Neg (Negative) 12/22/16 Unknown Urine WBC (Auto) < 1.0 /HPF (0.0-6.0) 12/22/16 Unknown Urine RBC (Auto) < 1.0 /HPF (0.0-6.0) 12/22/16 Unknown
--- NOTE | 2016-12-23 23:34 | Treadmill Report ---
NUCLEAR PERFUSION SCAN REFERRING PHYSICIAN: Hospitalist service. PROTOCOL: The patient was brought to the stress lab in a postabsorptive state, given 10 mCi of technetium 99m at rest. The patient underwent rest imaging. The patient underwent treadmill stress test. At peak stress, the patient was given 26 mCi of technetium 99m. Shortly thereafter, the patient underwent stress imaging. Raw imaging reveals mild GI artifact. No significant motion artifact. SPECT imaging examined carefully in the horizontal long axis, vertical long axis and short axis views. There is normal homogenous uptake of radioisotope in all reported segments. No evidence of significant fixed or reversible perfusion defects suggestive of prior infarction or ischemia. Gated wall motion reveals normal systolic performance with a calculated ejection fraction of 69%. No TID. CONCLUSIONS: 1. Normal myocardial perfusion scan without evidence of active ischemia or prior infarction. 2. Normal left ventricular systolic performance without evidence of transient ischemic dilatation or stress-induced segmental wall motion abnormalities. JOB# [id number] TOM/LAURA
[2016-12-24 06:36] LABS: Hematocrit 41.6 % (30.3-42.9); Hemoglobin 14.2 gm/dl (10.1-14.3); Mean Corpuscular HGB Conc 34 % (30-34); Mean Corpuscular Hemoglobin 31 pg (28-32); Mean Corpuscular Volume 91 fl (79-97); Platelet Count 161 K/mm3 (140-440); Red Blood Count 4.58 M/mm3 (3.65-5.03); Red Cell Distribution Width 14.7 % (13.2-15.2); White Blood Count 3.6 K/mm3 (4.5-11.0)
[2016-12-24 06:53] LABS: Anion Gap 16 mmol/L; BUN/Creatinine Ratio 26; Blood Urea Nitrogen 13 mg/dL (7-17); Calcium 9.2 mg/dL (8.4-10.2); Carbon Dioxide 24 mmol/L (22-30); Chloride 102.3 mmol/L (98-107); Glucose 96 mg/dL (65-100); Potassium 3.7 mmol/L (3.6-5.0); Sodium 139 mmol/L (137-145)
--- NOTE | 2016-12-24 08:44 | Discharge Summary ---
Providers - Providers Date of Admission: 12/22/16 21:43 Date of discharge: 12/24/16 Attending physician: LO BALBUENA 12/22/16 Consult to Cardiac Rehabilitation [CONS] Routine Reason For Exam: Phase I 12/22/16 22:52 Consult to Physician [CONS] Routine Consulting Provider: EDDIE MARTINEZ Reason For Exam: rectal bleeding Place consult to:: GI Primary care physician: [employer] Hospitalization Reason for admission: abd pain Condition: Stable Hospital course: 51-year-old -[place] female with medical history significant for hiatal hernia presented to the emergency department complaining of mid distal chest pain that started last week. Patient was also complaining of lower abdominal pain for the last 1 week, worse on the right side, crampy, 8 out of 10 in intensity with some radiation to the left side. Not associated nausea, vomiting , diarrhea, constipation. The patient was admitted with diagnosis of chest pain and abdominal pain. The patient also reported rectal bleeding but no signs of bleeding were seen on this hospitalization. Patient underwent stress thallium which was normal with no evidence of ischemia. CT scan was indeterminate of appendicitis. Therefore, surgery consultation was obtained and surgery felt that the physical exam, laboratory and follow-up CT reading did not support diagnosis of appendicitis. Patient was noted to have constipation for which she was treated with magnesium citrate. Patient's H&H remained stable and she can be followed up as an outpatient with Dr. Martinez who she has seen in the past for the questionable rectal bleeding. Etiology of chest pain is likely related to GERD. Dedicated discharge time 32 minutes. Disposition: - TO HOME OR SELFCARE Time spent for discharge: 32 - Discharge Diagnoses (1) Abdominal pain Status: Acute Qualifiers: Abdominal location: A (2) Chest pain Status: Acute Qualifiers: Chest pain type: C Ischemic chest pain type: I (3) History of rectal bleeding Status: Acute (4) GERD (gastroesophageal reflux disease) Status: Acute Qualifiers: Esophagitis presence: E Core Measure Documentation - Palliative Care Palliative Care/ Comfort Measures: Not Applicable - Core Measures Any of the following diagnoses?: none Exam - Constitutional Vitals: Temp Pulse Resp BP Pulse Ox 97.8 F 64 19 137/97 98 12/24/16 05:21 12/24/16 05:21 12/24/16 05:21 12/24/16 05:21 12/23/16 17:40 General appearance: Present: no acute distress, well-nourished - EENT Eyes: Present: PERRL ENT: hearing intact, clear oral mucosa - Neck Neck: Present: supple, normal ROM - Respiratory Respiratory effort: normal Respiratory: bilateral: CTA - Cardiovascular Heart Sounds: Present: S1 & S2. Absent: rub, click - Extremities Extremities: pulses symmetrical, No edema Peripheral Pulses: within normal limits - Abdominal General gastrointestinal: Present: soft, non-tender, non-distended, normal bowel sounds Female genitourinary: Present: normal - Integumentary Integumentary: Present: clear, warm, dry - Musculoskeletal Musculoskeletal: gait normal, strength equal bilaterally - Psychiatric Psychiatric: appropriate mood/affect, intact judgment & insight - Neurologic Neurologic: CNII-XII intact, moves all extremities Plan Activity: no restrictions Weight Bearing Status: Full Weight Bearing Follow up with: PRIMARY CARE, [Primary Care Provider] - 3-5 Days Prescriptions: Famotidine [Pepcid] 20 mg PO BID #60 tablet
[2016-12-24 11:04] VITALS: BP 158/91
[2016-12-24 11:33] LABS: Basophils % (Manual) 0 % (0.0-1.8); Blastocytes % (Manual) 0 %
[2016-12-24 11:34] LABS: Anisocytosis Few; Diff Status Complete; Hypochromasia Few; Target Cells Few
[2016-12-24 11:35] LABS: Large Platelets Few; Smudge Cells Few
== END 2016-12-24 11:35 | disposition home or self-care (01) | DRG 392 ==
LOC: ED 11:46 → 4A 21:43
PROVIDERS: ADMIT Internal Medicine; ATTEND Hospitalist
DX: K21.9 Gastro-esophageal reflux disease without esophagitis (principal); K62.5 Hemorrhage of anus and rectum; R10.9 Unspecified abdominal pain; K59.00 Constipation, unspecified; F17.200 Nicotine dependence, unspecified, uncomplicated; Z87.19 Personal history of other diseases of the digestive system; Z72.89 Other problems related to lifestyle
CPT/HCPCS: 36415; 71010; 74176; 78452; 80048; 80061; 81001; 82271; 84484; 84703; 85007; 85025; 85379; 85610; 93005; 93010; 93017; 99406; A9270-GY; A9502; J2785